=== PATIENT | male | born 1975 | race Caucasian/White ===

== ENCOUNTER → 2017-10-22 | Outpatient (CLI) | payer OTHER ==
[~2017-10-22] MED LIST: ALBU90OI INH; BENZ100A PO; CEPH500 PO; Cheratussin AC118 ML PO; DEPAKOTE; DOXY100 PO; Flonase 0.05% N16 GM; Mucinex1200 MG PO; ONDA4 PO; [UNRECOGNIZED DRUG - REMARK]
[2017-10-22 14:05] LABS: BASOPHILS ABSOLUTE AUTO 0.03 K/mm3 (0.00-0.23); BASOPHILS PERCENT AUTO 1 % (0-2); EOSINOPHILS ABSOLUTE AUTO 0.17 K/mm3 (0.00-0.68); EOSINOPHILS PERCENT AUTO 3 % (0-6); Hematocrit 45.4 % (37.0-53.0); Hemoglobin 15.4 g/dL (13.5-17.5); IMMATURE GRAN ABSOLUTE AUTO 0.01 K/mm3 (0.00-0.10); IMMATURE GRAN PERCENT AUTO 0 % (0-1); LYMPHOCYTES ABSOLUTE AUTO 1.85 K/mm3 (0.84-5.20); LYMPHOCYTES PERCENT AUTO 32 % (21-46); MONOCYTES ABSOLUTE AUTO 0.47 K/mm3 (0.16-1.47); MONOCYTES PERCENT AUTO 8 % (4-13); Mean Corpuscular HGB 28.4 pg (26.0-34.0); Mean Corpuscular HGB Conc 33.9 g/dL (31.5-36.5); Mean Corpuscular Volume 84 fL (80-100); Mean Platelet Volume 10.6 fL (9.1-12.4); NEUTROPHILS ABSOLUTE AUTO 3.34 K/mm3 (1.96-9.15); NEUTROPHILS PERCENT AUTO 57 % (41-73); Platelet Count 271 K/mm3 (150-400); RDW Coefficient Variation 13.4 % (11.7-14.2); RDW Standard Deviation 41.1 fL (35.1-46.3); Red Blood Cell Count 5.43 M/mm3 (4.30-5.90); White Blood Cell Count 5.87 K/mm3 (4.00-11.30)
[2017-10-22 14:55] LABS: Alanine Aminotransfer (ALT/SGP 27 U/L (12-78); Albumin/Globulin Ratio 1.1 (0.8-1.8); Alk Phos 103 U/L (50-136); Anion Gap 7 mmol/L (6-16); Aspartate Aminotrans (AST/SGOT 17 U/L (12-37); Bilirubin, Total 0.7 mg/dL (0.1-1.0); Blood Urea Nitrogen 17 mg/dL (8-24); Bun/Creatinine Ratio 20.4 (12.0-20.0); CO2, Blood 25 mmol/L (21-32); Calcium, Blood 8.6 mg/dL (8.5-10.1); Chloride, Blood 107 mmol/L (98-108); Creatinine, Blood 0.84 mg/dL (0.60-1.20); Globulin, Blood 3.7 g/dL (2.2-4.0); Glomerular Filtration Rate >60 (60-); Glucose, Blood 85 mg/dL (70-99); Potassium, Blood 4.3 mmol/L (3.5-5.5); Sodium, Blood 139 mmol/L (136-145); Total Protein, Blood 7.7 g/dL (6.4-8.2)
== END ==
LOC: LAB 13:40
PROVIDERS: Nurse Practitioner Family
DX: R56.9 Unspecified convulsions (principal); E55.9 Vitamin D deficiency, unspecified
CPT/HCPCS: 80053; 82306; 84443; 85025; 86592; 86618

== ENCOUNTER 2017-12-18 16:27 | Emergency (ER) | payer OTHER ==
[~2017-12-18] VITALS: Ht 175.3 cm; Wt 76.7 kg
[~2017-12-18 16:27] MED LIST changes: -ALBU90OI INH; -BENZ100A PO; -Cheratussin AC118 ML PO; -Flonase 0.05% N16 GM; -Mucinex1200 MG PO
[2017-12-18] MEDS ORDERED: Flonase 0.05% N16 GM (17:34)
[2017-12-18] MEDS ORDERED: Mucinex1200 MG PO (17:34)
[2017-12-18] MEDS ORDERED: ALBU90OI INH (17:34)
[2017-12-18] MEDS ORDERED: Cheratussin AC118 ML PO (17:34)
[2017-12-18] MEDS ORDERED: BENZ100A PO (17:34)
== END 2017-12-18 17:55 | disposition home or self-care (01) ==
LOC: ER 16:27
DX: R05 Cough (principal); J32.9 Chronic sinusitis, unspecified
CPT/HCPCS: 71046; 94640; 99284

== ENCOUNTER 2019-04-19 16:20 | Emergency (ER) | payer OTHER ==
[~2019-04-19] VITALS: Ht 167.6 cm; Wt 81.7 kg
[~2019-04-19 16:20] MED LIST changes: +ALBU90OI INH; +BENZ100A PO; +Cheratussin AC118 ML PO; +Flonase 0.05% N16 GM; +Mucinex1200 MG PO
[2019-04-19] MEDS ORDERED: DIVA125EC (17:04)
[2019-04-19] MEDS ORDERED: Flonase 0.05% N16 GM (17:13)
[2019-04-19] MEDS ORDERED: Sudogest30 MG PO (17:13)
[2019-04-19] MEDS ORDERED: ALBU90OI INH (17:13)
[2019-04-19] MEDS ORDERED: Augmentin 875-1 EACH PO (17:13)
== END 2019-04-19 17:18 | disposition home or self-care (01) ==
LOC: ER 16:20
DX: J32.9 Chronic sinusitis, unspecified (principal); Z79.899 Other long term (current) drug therapy
CPT/HCPCS: 71046; 99283-25